=== PATIENT | female | born 1970 ===

== ENCOUNTER 2025-06-17 11:00 | Day surgery (SDC) | payer OTHER ==
[2025-06-09 08:23] VITALS: BP 122/69
[2025-06-09 08:35] LABS: BASO % 0.5 % (0.1-1.2); EOS # 0.05 (0.04-0.54); EOS % 0.7 % (0.7-7.0); LYMPH # 2.80 (1.18-3.74); LYMPH % 37.1 % (19.3-53.1); MEAN PLATELET VOLUME 9.80 fl (9.4-12.4); MONO # 0.75 (0.24-0.82); MONO % 9.9 % (4.7-12.5); NEUT # 3.88 (1.56-6.13); NEUT % 51.5 % (34.0-71.1); RED CELL DISTRIBUTION WIDTH 12.4 % (11.6-14.4)
[2025-06-09 08:36] LABS: URINE APPEARANCE Clear; URINE BILIRRUBIN Negative (NEGATIVE); URINE BLOOD Negative; URINE COLOR Yellow; URINE GLUCOSE Negative (NEGATIVE); URINE KETONE Negative (NEGATIVE); URINE LEUKOCYTE Negative; URINE NITRATE Negative; URINE PROTEIN Negative (NEGATIVE); URINE UROBILINOGEN 0.2 E.U./dl
[2025-06-09 08:40] LABS: URINE BACTERIA 81.5 uL (0.0-1933); URINE RBC 8.7 uL (0.0-20.8)
[2025-06-09 08:41] LABS: URINE CAST 0.00 uL (0.0-1.40); URINE EPITHELIAL CELLS 1.0 uL (0.0-38.8); URINE WBC 1.3 uL (0.0-23.2)
[2025-06-09 09:03] LABS: ALT/SGPT 44.0 U/L (12-78); AST/SGOT 26.0 U/L (15-37); BILIRUBIN TOTAL 0.37 mg/dL (0.3-1.2); BUN CREA RATIO 18.0 (7.0-25.0); CREATININE SERUM 0.65 mg/dL (0.55-1.02); GFR 95.35; GLOBULINA 3.6 G/DL (2.4-3.5); GLUCOSE FASTING 85.0 mg/dL (65-100); OSMOLALITY SERUM 278.0 MOSM/KG (275-295)
[2025-06-09 09:06] LABS: INR < 0.93
[2025-06-09 14:51] LABS: RH POSITIVE
[~2025-06-17] VITALS: Ht 149.9 cm; Wt 61.2 kg
[2025-06-17] MEDS ORDERED: POVIDONE-IODINE 118 ML BOTT TOP ONE (16:50)
[2025-06-17] MEDS ORDERED: RINGERS SOLUTION,LACTATED 1,000 ML IV SCH (20:00)
== END 2025-06-17 22:25 | disposition home or self-care (01) ==
LOC: CIR.AMB 11:00
PROVIDERS: ATTEND Obstetrics & Gynecology
DX: N84.1 Polyp of cervix uteri (principal)